=== PATIENT | female | born 1985 | race Caucasian/White ===

== ENCOUNTER → 2018-01-15 | Day surgery (SDC) | payer OTHER ==
[~2018-01-15] MED LIST: IV RINGERS,LACTATED 1000ML 1,000 ML IV; LIDOCAINE 1% PF 2 ML VIAL. ID; LIDOCAINE 2% PF Vial for OR 5 ML VIAL.; MIDAZOLAM HCL/PF 2 MG/2 ML VIAL. IV; MORPHINE SULFATE 4 MG/ML DISP.SYRIN. IV; ONDANSETRON PF 4 MG/2 ML VIAL. IV; PROPOFOL 40 ML IV; fentaNYL PF VIAL 100 MCG/2 ML VIAL IV
[2018-01-15] MEDS: IV RINGERS,LACTATED 1000ML 1,000 ML IV (11:30)
[2018-01-15 12:06] LABS: NEG OBC UR NEG; POS OBC UR POS; U PREG PATIENT NEGATIVE (NEG)
== END | disposition home or self-care (01) ==
LOC: SURG 11:05
DX: K21.0 Gastro-esophageal reflux disease with esophagitis (principal); R10.13 Epigastric pain; Z43.1 Encounter for attention to gastrostomy
CPT/HCPCS: 43247; 81025; J2704